=== PATIENT | female | born 1960 | race African-American/Black ===

== ENCOUNTER → 2019-12-21 | Outpatient (CLI) | payer OTHER ==
--- NOTE | 2019-12-23 11:05 | RAD ---
DATE: 12/21/2019 7:57 AM EXAM: DIGITAL SCREEN BILAT W/CAD HISTORY: Screening COMPARISON: 12/06/2018 Bilateral full field craniocaudal and mediolateral oblique images were obtained using digital technique. This study was interpreted with the benefit of Computerized Aided Detection (CAD). FINDINGS: Breast Density: FATTY The Breast Parenchyma is primarily fatty replaced. Breast parenchyma level density A. No suspicious masses, microcalcifications or architectural distortion is present to suggest malignancy in either breast. The visualized axillae are unremarkable. IMPRESSION: No mammographic evidence of malignancy. BI-RADS CATEGORY: 1 NEGATIVE RECOMMENDED FOLLOW-UP: 12M 12 MONTH FOLLOW-UP Annual screening mammography is recommended, unless clinically indicated sooner based on symptoms or change in physical exam. PQRS compliance statement: Patient information was entered into a reminder system with a target due date for the next mammogram. Mammography is a sensitive method for finding small breast cancers, but it does not detect them all and is not a substitute for careful clinical examination. A negative mammogram does not negate a clinically suspicious finding and should not result in delay in biopsying a clinically suspicious abnormality. "Our facility is accredited by the [employer] Mammography Program."
== END ==
LOC: MAMMO 07:51
PROVIDERS: ATTEND Family Medicine
DX: Z12.31 Encounter for screening mammogram for malignant neoplasm of breast (principal)
CPT/HCPCS: 77067

== ENCOUNTER 2020-07-14 18:19 | Emergency (ER) | payer OTHER ==
[~2020-07-14] VITALS: Ht 147.3 cm; Wt 111.5 kg
[2020-07-14] MEDS ORDERED: KETOROLAC 60 MG/2 ML VIAL. IM ONE (19:15)
[2020-07-14] MEDS ORDERED: methylPREDNISolone ACETATE 80 MG/ML VIAL. IM ONE (19:15)
[2020-07-14] MEDS ORDERED: CYCL-331 PO (20:11)
[2020-07-14] MEDS ORDERED: IBUP600T16 PO (20:11)
--- NOTE | 2020-07-14 20:12 | PHYS DOC ---
Adult General Chief Complaint Chief Complaint: LOWER EXT PAIN HPI HPI Patient is a 60-year-old female who presents emergency department complaining of a muscle spasm in her right thigh that has been worsening over the past week. Patient denies any injury to this thigh, states that she gives herself Bydureon injections to help with her diabetes. Patient denies any numbness or tingling down her extremity. Patient denies any swelling to her right lower extremity. Patient states she took 2 500 mg Tylenols at 11 AM today which seemed to help some. Patient rates her pain an 8/10 with a 10 pain scale. Patient denies any other physical complaints or physical concerns. (PREET WARREN APRN) Review of Systems Review of Systems 14 body systems of review of systems have been reviewed. See HPI for pertinent positives and negative responses, otherwise all other systems are negative, nonpertinent or noncontributory. (PREET WARREN APRN) Current Medications Current Medications Current Medications Medications (Trade) Dose Ordered Sig/Sukumar Start Time Stop Time Status Last Admin Dose Admin Ketorolac Tromethamine (Toradol Im) 60 mg 1X ONCE 07/14/20 19:15 07/14/20 19:16 DC 07/14/20 19:32 60 MG Methylprednisolone Acetate (DEPO-Medrol IM) 80 mg 1X ONCE 07/14/20 19:15 07/14/20 19:16 DC 07/14/20 19:32 80 MG (PREET WARREN APRN) Allergies Allergies Allergies Coded Allergies Type Severity Reaction Last Updated Verified No Known Drug Allergies 07/14/20 No (PREET WARREN APRN) Physical Exam Physical Exam Constitutional: Well developed, well nourished, no acute distress, non-toxic appearance. 60-year-old female no apparent distress. HENT: Normocephalic, atraumatic, Eyes: conjunctiva normal, no discharge. [] Neck: Normal range of motion, Cardiovascular: No cyanosis appreciated, distal cap refill less than 2 seconds. Lungs & Thorax: Patient in no respiratory distress, no audible adventitious lung sounds appreciated. Skin: Warm, dry, no erythema, no rash. [] Back: No tenderness, no CVA tenderness. [] Extremities: No tenderness, no cyanosis, no clubbing, ROM intact, no edema. Except for right thigh lateral aspect painful to palpation, no crepitus appreciated, no swelling appreciated, no deformities appreciated. Neurologic: Alert and oriented X 3, normal motor function, normal sensory function, no focal deficits noted. [] Psychologic: Affect normal, judgement normal, mood normal. [] (PREET WARREN APRN) EKG EKG [] (PREET WARREN APRN) Radiology/Procedures Radiology/Procedures [] (PREET WARREN APRN) Heart Score C/O Chest Pain: No Risk Factors: Risk Factors: DM, Current or recent (<one month) smoker, HTN, HLP, family history of CAD, obesity. Risk Scores: Risk Factors: DM, Current or recent (<one month) smoker, HTN, HLP, family history of CAD, obesity. (PREET WARREN APRN) Course & Med Decision Making Course & Med Decision Making Pertinent Labs and Imaging studies reviewed. (See chart for details) 60-year-old female, vital signs reviewed, resents emergency department complaining of right lateral thigh pain has progressed over the past week. Patient denies injury, physical examination consistent with myalgia versus nerve inflammation. Will give 60 mg Toradol IM, 80 mg Depo-Medrol IM. Discussed with patient will send home with prescription for Flexeril 10 mg to take as needed up to 3 times a day, 600 mg ibuprofen 3 times daily as needed. Patient gave verbal understanding of discharge home instructions, follow-up with her primary care physician Dr. Rodriguez on July 20, return to ER precautions or concerns, patient was discharged home without incident. (PREET WARREN APRN) Course & Med Decision Making Did not see or evaluate patient. Agree with [facility] SPECIALIST's work-up and disposition per note (ROSS DUKES MD) Dragon Disclaimer Dragon Disclaimer This electronic medical record was generated, in whole or in part, using a voice recognition dictation system. (PREET WARREN APRN) Departure Departure: Impression: Primary Impression: Neuropathic pain of right thigh Disposition: HOME / SELF CARE / HOMELESS Condition: GOOD Referrals: RAHAT RODRIGUEZ MD (PCP) Additional Instructions: You are seen today in the emergency department for pain in the right thigh, you are given an injection of pain medication Toradol 60 mg IM along with a steroid injection Depo-Medrol, I have prescribed for you 10 mg Flexeril and 600 mg ibuprofen to take at home for ongoing pain. Please follow-up with your primary care physician Dr. Rodriguez for ongoing pain medication, you have indicated you have a appointment on July 20 of this year. Please keep this appointment. Please return the emergency department for worsening symptoms or other concerns. Please do not drive or operate heavy machinery when taking the muscle relaxer Flexeril. EMERGENCY DEPARTMENT GENERAL DISCHARGE INSTRUCTIONS Thank you for coming to [facility] (ED) today and trusting us with you care. We trust that you had a positivie experience in our Emergency Department. If you wish to speak to the department management, you may call the director at [phone]. YOUR FOLLOW UP INSTRUCTIONS ARE FOLLOWS: 1. Do you have a private Doctor? If you do not have a private doctor, please ask for a resource list of physicians or clinics that may be able to assist you with follow up care. 2. The Emergency Physician has interpreted your x-rays. The X-Ray specialist will also review them. If there is a change in the findings, you will be notified in 48 hours when at all possible. 3. A lab test or culture has been done, your results will be reviewed and you will be notified if you need a change in treatment. ADDITIONAL INSTRUCTIONS AND INFORMATION: 1. Your care today has been supervised by a physician who is specially trained in emergency care. Many problems require more than one evaluation for a complete diagnosis and treatment. We recommend that you schedule your follow up appointment as recommended to ensure complete treatment of you illness or injury. If you are unable to obtain follow up care and continue to have a problem, or if your condition worsens, we recommend that you return to the ED. 2. We are not able to safely determine your condition over the phone nor are we able to give sound medical advice over the phone. For these safety reasons, if you call for medical advice we will ask you to come to the ED for further evaluation. 3. If you have any questions regarding these discharge instructions please call the ED at [phone]. SAFETY INFORMATION: In the interest of safety, wellness, and injury prevention; we encourage you to wear your sealbelt, if you smoke; quite smoking, and we encourage family to use a protective helmet for bicycling and other sporting events that present an increased risk for head injury. IF YOUR SYMPTOMS WORSEN OR NEW SYMPTOMS DEVELOP, OR YOU HAVE CONCERNS ABOUT YOUR CONDITION; OR IF YOUR CONDITION WORSENS WHILE YOU ARE WAITING FOR YOUR FOLLOW UP APPOINTMENT; EITHER CONTACT YOUR PRIMARY CARE DOCTOR, THE PHYSICIAN WHOSE NAME AND NUMBER YOU WERE GIVEN, OR RETURN TO THE ED IMMEDIATELY. Scripts Ibuprofen (IBUPROFEN) 600 Mg Tablet 600 MG PO TID PRN PRN for PAIN, #20 TAB 0 Refills Prov: PREET WARREN APRN 07/14/20 Cyclobenzaprine Hcl (CYCLOBENZAPRINE HCL) 10 Mg Tablet 1 TAB PO TID PRN PRN for PAIN, #12 TAB 0 Refills Prov: PREET WARREN APRN 07/14/20 PREET WARREN APRN Jul 14, 2020 20:12 ROSS DUKES MD Jul 15, 2020 01:31
[2020-07-14 20:20] VITALS: BP 153/88
== END 2020-07-14 20:20 | disposition home or self-care (01) ==
LOC: ER 18:19
DX: M79.651 Pain in right thigh (principal); M62.838 Other muscle spasm
CPT/HCPCS: 96372; 99284; J1040; J1885

== ENCOUNTER → 2020-07-16 | Outpatient (CLI) | payer OTHER ==
[2020-07-14 20:20] VITALS: BP 153/88
[~2020-07-16] MED LIST: CYCL-331 PO; IBUP600T16 PO
--- NOTE | 2020-07-17 04:41 | RAD ---
XR LUMBAR SPINE 2-3V, XR BILATERAL HIP (WITH OR WITHOUT PELVIS) 2 VIEWS_RIGHT History: Reason: LOW BACK PAIN, RIGHT HIP AND LEG PAIN / Spl. Instructions: / History: Technique: AP view the pelvis and 2 additional views of the right hip. 3 views lumbar spine. Comparison: None. Findings: Lumbar spine: Normal vertebral body height and alignment. No fracture. Multilevel degenerative disc c hanges most prominent moderate L5-S1. Lower lumbar facet arthropathy. Normal alignment of the hips. No fracture. Impression: 1. No acute osseous abnormality. 2. Multilevel lumbar spondylosis most prominent L5-S1. Electronically signed by: Truman Ferrer DO (07/17/2020 4:39 AM) [facility]
== END ==
LOC: RAD 17:25
PROVIDERS: ATTEND Family Medicine
DX: M47.817 Spondylosis without myelopathy or radiculopathy, lumbosacral region (principal); M25.551 Pain in right hip
CPT/HCPCS: 72100; 73502

== ENCOUNTER → 2021-07-05 | Outpatient (CLI) | payer OTHER ==
[~2021-07-05] MED LIST changes: -CYCL-331 PO; +CYCL10TA19 PO
--- NOTE | 2021-07-05 12:37 | RAD ---
Digital Mammogram Bilateral History: Routine screening Technique: 2-D digital CC and MLO views were obtained. CAD - computer aided detection was utilize d. Comparison: Mammograms from 12/21/2019 and 12/06/2018. Findings: Breast Tissue Density B : There are scattered areas of fibroglandular density There are no suspicious masses, malignant appearing calcifications, or areas of architectural distort ion. Impression: No evidence of malignancy. Assessment: BI-RADS Category 1: Negative. Recommendation: Screening mammograms. The patient will receive a letter with the results in the mail. Patient information will be entered i nto the mammography reminder system with a target recall date for the next mammogram. A reminder sergey er will be generated. Electronically signed by: Deepa Valadez MD (07/05/2021 12:35 PM) [id number]
== END ==
LOC: MAMMO 10:11
PROVIDERS: ATTEND Family Medicine
DX: Z12.31 Encounter for screening mammogram for malignant neoplasm of breast (principal)
CPT/HCPCS: 77067